=== PATIENT | male | born 1985 | race Two or more races ===

== ENCOUNTER 2019-06-27 20:54 | Emergency (ER) | payer SELFPAY ==
[~2019-06-27] VITALS: Ht 177.8 cm; Wt 68.0 kg
[2019-06-27] MEDS ORDERED: HALOPERIDOL LACTATE 5MG/ML VIAL IM STA (22:48)
[2019-06-27] MEDS ORDERED: RISPERIDONE 1MG TABLET PO SCH (23:00)
[2019-06-28 01:26] LABS: CHLORIDE 106 mEq/L (98-107)
[2019-06-28 01:30] LABS: ETHANOL BLOOD 26 mg/dL
[2019-06-28 01:40] LABS: HEMATOCRIT. 46.9 % (42.0-52.0); HEMOGLOBIN. 15.3 g/dL (14.0-18.0); MEAN CORPUSCULAR HEMOGLOBIN 25.6 pg (28.0-32.0); MEAN CORPUSCULAR VOLUME 78.7 fL (80.0-94.0); MEAN PLATELET VOLUME 8.3 fl (7.4-10.4); PLATELET 240 x1000/uL (130-400); RED BLOOD CELL COUNT 5.96 mill/uL (4.7-6.1); RED CELL DISTRIBUTION WIDTH 14.5 % (11.6-14.6)
[2019-06-28 03:04] LABS: CLARITY URINE CLEAR (CLEAR); COLOR URINE YELLOW (YELLOW); KETONES URINE 1+ (NEGATIVE); LEUKOCYTE ESTERASE URINE NEGATIVE (NEGATIVE); NITRITE URINE NEGATIVE (NEGATIVE); OCCULT BLOOD URINE 1+ (NEGATIVE); PROTEIN URINE 1+ (NEGATIVE); SPECIFIC GRAVITY URINE 1.029 (1.005-1.030)
[2019-06-28 03:05] LABS: PLATELET ESTIMATE NORMAL
[2019-06-28 03:15] LABS: *BARBITURATES SCREEN URINE NEGATIVE (NEGATIVE); *BENZODIAZEPINES SCREEN URINE PRESUMTIVE POSITIVE (NEGATIVE)
[2019-06-28 03:16] LABS: *AMPHETAMINES SCREEN URINE NEGATIVE (NEGATIVE); *COCAINE SCREEN URINE NEGATIVE (NEGATIVE); CANNABINOID URINE SCREEN PRESUMTIVE POSITIVE (NEGATIVE); METHADONE URINE SCREEN NEGATIVE (NEGATIVE); OPIATES URINE SCREEN NEGATIVE (NEGATIVE); PHENCYCLIDINE URINE SCREEN NEGATIVE (NEGATIVE)
[2019-06-28 04:47] VITALS: BP 117/81
== END 2019-06-28 07:25 | disposition home or self-care (01) ==
LOC: ER 20:54
DX: F23 Brief psychotic disorder (principal); J45.909 Unspecified asthma, uncomplicated; F17.200 Nicotine dependence, unspecified, uncomplicated
CPT/HCPCS: 36415; 80053; 80305; 80320; 81003; 82962; 85025; 96372; 99284; J1630; G0480